=== PATIENT | female | born 2000 | race Two or more races ===

== ENCOUNTER 2025-03-07 16:49 | Emergency (ER) | payer MEDICAID, SELFPAY ==
[2025-03-07 16:58] VITALS: BP 103/65; PULSE 78; RESP 17; TEMP 36.7; O2SAT 98; BMI 23.9
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
[2025-03-07] MEDS: DiphenhydrAMINE 25 MG CAPSULE PO (17:09)
[2025-03-07] MEDS: DEXAMETHASONE SOD PHOS INJ 10 MG/ML VIAL IM (17:10)
== END 2025-03-07 17:14 | disposition home or self-care (01) ==
LOC: SERX 17:13
PROVIDERS: Emergency Provider Family Medicine
DX: L50.9 Urticaria, unspecified (principal)
CPT/HCPCS: 96372; 99283; J1100; A9270

== ENCOUNTER 2025-04-01 08:30 | Outpatient (RCR) | payer MEDICAID, SELFPAY ==
--- NOTE | 2025-03-31 08:30 | XR_ITS ---
Examination: Nuclear medicine thyroid uptake and scan Date and time: March 31, 2025 0902 hours INDICATIONS: Tachycardia, cardiac palpitations, dizziness, months, diagnosis thyroid toxicosis TECHNIQUE AND FINDINGS: Oral administration 272 uCi I-123 6 hour uptake 14% normal range 6-24% 24 hour uptake 24.1% normal range 10-36% Normal thyroid scans anterior both obliques IMPRESSION: Negative study
[2025-03-31 09:09] LABS: HCG Qualitative,Urine Negative
== END 2025-04-06 23:59 | disposition home or self-care (01) ==
LOC: SNUC 08:30
DX: E05.90 Thyrotoxicosis, unspecified without thyrotoxic crisis or storm (principal); Z32.00 Encounter for pregnancy test, result unknown
CPT/HCPCS: 36415; 78013; 81025; 84703; A9516